=== PATIENT | female | born 1960 | race Caucasian/White ===

== ENCOUNTER → 2024-09-01 | Outpatient (CLI) | payer MEDICARE, MEDICAID, SELFPAY ==
--- NOTE | 2024-09-01 08:30 | XR_ITS ---
Examination: MRI lumbar spine without contrast Date and time of exam: September 01, 2024 0958 hours INDICATIONS: Low back pain radiating down both legs 20 years numbness and paresthesias in the legs Technique: Multiple MRI axial and sagittal sections lumbar spine. Sagittal T2-weighted images, TR 3500, TE 118 T1 weighted transverse sections, TR 688 T8.5, T2-weighted sagittal sections T1 weighted sagittal sections TR 621, TE 30 T2 axial sections, TR 4, 190, TE 84. 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
== END | disposition home or self-care (01) ==
LOC: SMRI 08:14
PROVIDERS: PCP Nurse Practitioner Family; Referring Provider Nurse Practitioner Family; Visit Provider Obstetrics & Gynecology
DX: M51.379 Other intervertebral disc degeneration, lumbosacral region without mention of lumbar back pain or lower extremity pain (principal); M51.369 Other intervertebral disc degeneration, lumbar region without mention of lumbar back pain or lower extremity pain; M47.896 Other spondylosis, lumbar region
CPT/HCPCS: 72148

== ENCOUNTER → 2025-01-06 | Outpatient (CLI) | payer MEDICARE, MEDICAID, SELFPAY ==
--- NOTE | 2025-01-06 13:00 | XR_ITS ---
Examination: Breast ultrasound complete, bilateral Date and time of exam: January 06, 2025 1328 hours INDICATIONS: Bilateral breast sonography July 07, 2024 bilateral breast nodules Technique: Real-time grayscale ultrasonographic imaging bilateral breasts, including all 4 quadrants as well as nipple retroareolar and axillary regions. Findings: Sonographic images right breast 2:00 hypoechoic nodule 8 x 7 mm 7:00 hyperechoic nodule 4 x 5 mm 8:00 hyperechoic nodule 6 x 6 mm Sonographic images left breast 11:00 hyperechoic nodule 6 x 6 mm IMPRESSION: BI-RADS Category 3: Probably benign findings. Recommend 1 additional 6 month bilateral breast sonography follow-up to document stability of solid nodules described above
== END | disposition home or self-care (01) ==
PROVIDERS: PCP Nurse Practitioner Family; Referring Provider Nurse Practitioner Family; Visit Provider Nurse Practitioner Family
DX: N63.21 Unspecified lump in the left breast, upper outer quadrant (principal); N63.13 Unspecified lump in the right breast, lower outer quadrant; N63.12 Unspecified lump in the right breast, upper inner quadrant
CPT/HCPCS: 76641

== ENCOUNTER → 2025-03-14 | Outpatient (CLI) | payer MEDICARE, MEDICAID, SELFPAY ==
--- NOTE | 2025-03-14 12:29 | XR_ITS ---
Examination: Lumbar spine, 7 views Technique: Lumbar spine AP, lateral, coned lateral lower lumbar spine, bilateral obliques standing lateral flexion, standing lateral extension total 7 views Exam date and time: March 14, 2025 1241 hours INDICATIONS: Low back pain 20 years worse beginning April 2024 FINDINGS: Prominent osteopenia Lumbar levoscoliosis 8 degrees Diffuse advanced facet arthropathy Grade 1 anterolisthesis L4 on L5 Moderate disc narrowing L5-S1 No lumbar fracture Advanced degenerative disc disease T11-T12, T12-L1 Reduced range of motion between flexion and extension IMPRESSION: Moderate degenerative disc disease L5-S1 Advanced degenerative disc disease T12-L1, T11-T12
== END | disposition home or self-care (01) ==
PROVIDERS: PCP Obstetrics & Gynecology; Referring Provider Nurse Practitioner; Visit Provider Nurse Practitioner
DX: M51.379 Other intervertebral disc degeneration, lumbosacral region without mention of lumbar back pain or lower extremity pain (principal); M51.35 Other intervertebral disc degeneration, thoracolumbar region
CPT/HCPCS: 72110

== ENCOUNTER → 2025-03-14 | Outpatient (CLI) | payer MEDICARE, MEDICAID, SELFPAY ==
--- NOTE | 2025-03-14 12:30 | XR_ITS ---
Examination: MRI thoracic spine without contrast. Date and time of exam: March 14, 2025 1311 hours INDICATIONS: Back pain radiating to both legs difficulty walking 15 years Technique: Multiple sagittal and axial images of the thoracic spine have been obtained. T1 weighted localizer, sagittal T2 weighted images, TR 30-50, TE 148, T1 weighted sagittal images, TR 650, TE 14, T2-weighted transverse images, TR 6770, TE 142 Findings: Mild kyphosis dorsal spine No acute thoracic fracture Mild to moderate diffuse thoracic disc narrowing Diffuse thoracic disc desiccation Minimal disc bulges at multiple levels in one to 2 mm range No focal thoracic disc protrusion impinging upon the thoracic cord No localized enlargement thoracic cord Hemangiomatous change T3 Impression: Mild to moderate diffuse thoracic degenerative disc disease No significant acquired spinal stenosis
== END | disposition home or self-care (01) ==
PROVIDERS: PCP Obstetrics & Gynecology; Referring Provider Nurse Practitioner; Visit Provider Nurse Practitioner
DX: M51.34 Other intervertebral disc degeneration, thoracic region (principal); R20.0 Anesthesia of skin
CPT/HCPCS: 72146

== ENCOUNTER → 2025-07-04 | Outpatient (CLI) | payer MEDICARE, MEDICAID, SELFPAY ==
--- NOTE | 2025-07-04 13:00 | XR_ITS ---
Examination: Breast ultrasound complete, bilateral Date and time of exam: July 04, 2025, 1250 hours INDICATIONS: Palpable lump in the upper left breast noticed beginning several years ago Technique: Real-time grayscale ultrasonographic imaging bilateral breasts, including all 4 quadrants as well as nipple retroareolar and axillary regions. Findings: Sonographic images right breast 2:00 nodule 6 x 8 mm 11:00 nodule 7 x 6 mm Sonographic images left breast 11:00 nodule 26 x 19 mm IMPRESSION: Bilateral probably benign lipomas, recommend 6-month follow-up bilateral breast sonography
== END | disposition home or self-care (01) ==
LOC: CDIM 12:42
PROVIDERS: PCP Nurse Practitioner Family; Referring Provider Nurse Practitioner Family; Visit Provider Nurse Practitioner Family
DX: R92.8 Other abnormal and inconclusive findings on diagnostic imaging of breast (principal)
CPT/HCPCS: 76641